=== PATIENT | male | born 1990 | race African-American/Black ===

== ENCOUNTER 2023-10-09 11:53 | Emergency (ER) | payer OTHER ==
[~2023-10-09] VITALS: Ht 188 cm; Wt 127.7 kg
[2023-10-09] MEDS ORDERED: ZITHROMAX Z PA250 MG PO (12:55)
[2023-10-09] MEDS ORDERED: TESSALON PERLE200 MG PO (12:56)
[2023-10-09 13:06] VITALS: BP 162/102; PULSE 96; TEMP 98
[2023-10-12] MEDS ORDERED: MEDROL 4MG DOSPA4 MG PO (02:10)
[2023-10-12] MEDS ORDERED: VENTOLIN0.09 MG IH (02:10)
== END 2023-10-09 13:05 | disposition home or self-care (01) ==
LOC: COL.ER 11:53
DX: J20.9 Acute bronchitis, unspecified (principal)